=== PATIENT | female | born 1960 | race Two or more races ===

== ENCOUNTER 2019-04-29 21:27 | Emergency (ER) | payer MEDICAID ==
[~2019-04-29] VITALS: Ht 162.6 cm; Wt 68.0 kg
[~2019-04-29 21:27] MED LIST: GLYB5TAB4; LEVO75TA; METF500T; NITR-87; SIMVASTATIN
[2019-04-29] MEDS ORDERED: SODIUM CHLORIDE 0.9% 1,000 ML IV ONE (21:47)
[2019-04-29 22:36] LABS: BASOPHILS % 0.7 % (0.0-2.0); HEMATOCRIT. 42.7 % (36.0-48.0); HEMOGLOBIN. 14.7 g/dL (12.0-16.0); LYMPHOCYTES % 34.3 % (20.0-50.0); MEAN CORPUSCULAR HEMOGLOBIN 31.7 pg (28.0-32.0); MEAN CORPUSCULAR VOLUME 92.4 fL (81.0-99.0); MEAN PLATELET VOLUME 9.8 fl (7.4-10.4); MONOCYTES % 3.9 % (2.0-8.0); NEUTROPHILS % 60.1 % (40.0-76.0); PLATELET 245 x1000/uL (130-400); RED BLOOD CELL COUNT 4.62 mill/uL (4.2-5.4); RED CELL DISTRIBUTION WIDTH 13.2 % (11.6-14.6)
[2019-04-29 22:42] LABS: CHLORIDE 103 mEq/L (98-107)
[2019-04-30] MEDS ORDERED: POTASSIUM CHLORIDE 20MEQ TABLET SR PO ONE (00:30)
[2019-04-30 01:37] VITALS: BP 122/68
== END 2019-04-30 02:04 | disposition home or self-care (01) ==
LOC: ER 21:27
DX: R53.1 Weakness (principal); R51 Headache; E11.9 Type 2 diabetes mellitus without complications; I10 Essential (primary) hypertension; M54.2 Cervicalgia
CPT/HCPCS: 36415; 71045; 80053; 83880; 84484; 85025; 99284; J7030